=== PATIENT | female | born 1970 | race Caucasian/White ===

== ENCOUNTER → 2017-10-05 | Outpatient (CLI) | payer OTHER | END | disposition home or self-care (01) | LOC: CDC 11:53 | DX: Z01.810 Encounter for preprocedural cardiovascular examination (principal); G56.22 Lesion of ulnar nerve, left upper limb; R94.31 Abnormal electrocardiogram [ECG] [EKG] | CPT/HCPCS: 93000 ==

== ENCOUNTER 2017-10-17 11:52 | Day surgery (SDC) | payer OTHER ==
[~2017-10-17] VITALS: Ht 175.3 cm; Wt 81.2 kg
[~2017-10-17 11:52] MED LIST: ADVAIR 250/501 DISK IH; FLEXERIL10 MG PO; LIPITOR10 MG PO; MS CONTIN,ORAMO15 M1 PO; PERCOCET 10/1 TABLET PO; PRILOSEC20 MG PO; PROAIR HFA8.5 GM IH; REQUIP0.5 MG PO
[2017-10-17 12:14] VITALS: BP 114/79
[2017-10-17 16:25] VITALS: BP 121/78
[2017-10-17 17:20] VITALS: BP 120/84
== END 2017-10-17 17:20 | disposition home or self-care (01) ==
LOC: SDC 11:52
PROC: 01N40ZZ Release Ulnar Nerve, Open Approach (ICD-10-PCS; principal; 2017-10-17)
DX: G56.22 Lesion of ulnar nerve, left upper limb (principal); J44.9 Chronic obstructive pulmonary disease, unspecified; K21.9 Gastro-esophageal reflux disease without esophagitis; E78.00 Pure hypercholesterolemia, unspecified; R94.31 Abnormal electrocardiogram [ECG] [EKG]; F17.210 Nicotine dependence, cigarettes, uncomplicated; Z79.891 Long term (current) use of opiate analgesic
CPT/HCPCS: C9353; J0690; J1170; J2250; J2405; J3010; S0020

== ENCOUNTER 2017-12-11 07:03 | Day surgery (SDC) | payer OTHER ==
[~2017-12-11] VITALS: Ht 175.3 cm; Wt 80.3 kg
[~2017-12-11 07:03] MED LIST changes: +MEDROL4 MG PO
== END 2017-12-11 08:40 | disposition home or self-care (01) ==
LOC: PAIN 07:03 → SDC 07:30 → PAIN 07:30
DX: M47.816 Spondylosis without myelopathy or radiculopathy, lumbar region (principal); M48.061 Spinal stenosis, lumbar region without neurogenic claudication; M51.36 Other intervertebral disc degeneration, lumbar region; G56.22 Lesion of ulnar nerve, left upper limb; M41.9 Scoliosis, unspecified; J44.9 Chronic obstructive pulmonary disease, unspecified; K21.9 Gastro-esophageal reflux disease without esophagitis; F17.200 Nicotine dependence, unspecified, uncomplicated; Z91.040 Latex allergy status; Z79.891 Long term (current) use of opiate analgesic; Z88.6 Allergy status to analgesic agent
CPT/HCPCS: J1030; J2250; S0020

== ENCOUNTER 2017-12-25 11:26 | Day surgery (SDC) | payer OTHER ==
[~2017-12-25] VITALS: Ht 175.3 cm; Wt 80.3 kg
== END 2017-12-25 13:45 | disposition home or self-care (01) ==
LOC: PAIN 11:26 → SDC 11:45 → PAIN 13:45
DX: M47.816 Spondylosis without myelopathy or radiculopathy, lumbar region (principal); M51.36 Other intervertebral disc degeneration, lumbar region; M41.9 Scoliosis, unspecified; M48.061 Spinal stenosis, lumbar region without neurogenic claudication; E78.5 Hyperlipidemia, unspecified; J44.9 Chronic obstructive pulmonary disease, unspecified; K21.9 Gastro-esophageal reflux disease without esophagitis; R94.31 Abnormal electrocardiogram [ECG] [EKG]; Z79.891 Long term (current) use of opiate analgesic; Z88.4 Allergy status to anesthetic agent; Z88.1 Allergy status to other antibiotic agents; Z91.040 Latex allergy status; Z91.048 Other nonmedicinal substance allergy status; F17.200 Nicotine dependence, unspecified, uncomplicated
CPT/HCPCS: J1030; J2250; J3010; S0020